=== PATIENT | female | born 1990 | race American Indian/Alaskan Native ===

== ENCOUNTER 2016-12-24 10:20 | Emergency (ER) | payer MEDICAID, OTHER ==
[2016-12-24 10:21] VITALS: BMI 29.9
[2016-12-24 11:07] VITALS: BP 109/74; PULSE 95; RESP 16; TEMP 98.6; O2SAT 100
--- NOTE | 2016-12-24 12:03 | ED PDOC ---
Arrival/HPI - General Chief Complaint: Female Genitourinary Time Seen by Provider: 12/24/16 11:19 - History of Present Illness Narrative History of Present Illness (Text): 12/24/16 12:00 26yo female, denies PMHx, presents with vaginal bleeding, described as clots for 2 days. 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 Denies abd or pelvic pain, denies n/v, denies RODRIGUEZ, denie f/c, denies vaginal discharge, denies other symptoms. States her LNMP was in the beginning of this month. Past Medical History - Provider Review Nursing Documentation Reviewed: Yes - Past Medical History Past Medical History: No Previous - Psychiatric Hx Psychophysiologic Disorder: No Hx Substance Use: No - Past Surgical History Past Surgical History: Non-Contributing - Surgical History Hx Orthopedic Surgery: Yes (L HIP) Other/Comment: dislocated left hip - Suicidal Assessment Feels Threatened In Home Enviroment: No Family/Social History Family/Social History: Unknown Family HX Smoking Status: Never Smoked Hx Alcohol Use: Yes Hx Substance Use: No Allergies/Home Meds Allergies/Adverse Reactions: Allergies No Known Allergies Allergy (Verified 12/24/16 11:01) Home Medications: Home Meds Medication Instructions Recorded Confirmed No Known Home Med 12/24/16 12/24/16 Physical Exam - Physical Exam Narrative Physical Exam (Text): 12/24/16 12:03 - Review of Systems Constitutional: Normal. absent: Fatigue, Weight Change, Fevers Eyes: Normal ENT: denies sore throat, denies tristhmus Respiratory: Normal. absent: SOB, Cough, Sputum Cardiovascular: absent: Chest Pain, Palpitations, Syncope Gastrointestinal: Normal. absent: Abdominal Pain, Diarrhea, Nausea, Vomiting Genitourinary: vaginal bleeding absent: Dysuria, Frequency, Hematuria Musculoskeletal: Normal. absent: Arthralgias, Back Pain, Neck Pain Skin: no rashes, no erythema Neurological: absent: Focal Weakness Endocrine: Normal Hemo/Lymphatic: Normal Psychiatric: No suicidal or homicidal ideations Physical exam Patient appears age appropriate in no distress, speaking full sentences without difficulty - Systems Exam Head: Present: Atraumatic, Normocephalic Pupils: Present: PERRL Extroacular Muscles: Present: EOMI Conjunctiva: Present: Normal Mouth: Present: Moist Mucous Membranes Neck: Present: Normal Range of Motion. No: MIDLINE TENDERNESS, Paraspinal Tenderness Respiratory/Chest: Present: Clear to Auscultation, Good Air Exchange. No: Respiratory Distress, Accessory Muscle Use, Tachypneic Cardiovascular: Present: Regular Rate and Rhythm, Normal S1, S2, Peripheal Pulses Present. No: Murmurs Abdomen: Present: Normal Bowel Sounds. No: Tenderness, Distention, Peritoneal Signs, Rebound, Guarding Back: Present: Normal Inspection. No: Midline Tenderness, Paraspinal Tenderness Upper Extremity: Present: Normal Inspection. No: Cyanosis, Edema Lower Extremity: Present: Normal Inspection. No: Edema Neurological: Present: GCS=15, Speech Normal, cranial nerves II through XII fully intact with no cerebellar abnormality, neurosensory fully intact. No focal neurological deficits. Skin: Present: Warm, Dry, Normal Color. No: Rashes Lymphatic: Present: OX3, NI, NC Psychiatric: Present: Alert, Oriented x 3, Normal Insight, Normal Concentration Vital Signs Reviewed: Yes Vital Signs Temp Pulse Resp BP Pulse Ox 12/24/16 11:01 98.6 F 95 H 16 109/74 100 Temperature: Afebrile Blood Pressure: Normal Pulse: Regular Respiratory Rate: Normal Appearance: Positive for: Well-Appearing Pain Distress: None Mental Status: Positive for: Alert and Oriented X 3 Medical Decision Making ED Course and Treatment: 12/24/16 12:04 26yo female with vaginal clots, getting plant custodian, x2 days. No other complaints and no acute findings on physical examination. pt's POC is negative. pt states she has breast reduction surgery on Wednesday. will draw Hb pt instructed to tell her surgeon about this visit and that she may need a repeat Hb before the procedure. Pt repeated plan and verbalized understanding. Pt states she has a f/u appt with her environmental laboratory technician early next month. 12/24/16 12:41 Hb 11.5 pt hemodynamically stable in no distress, denies complaints states she is taking iron and folic acid states she feels comfortable being dc'd home with outpatient f/u Pt states she understands to return to the ER right away for new or worsening symptoms or for inability to f/u with PMD or specialist as instructed. Patient states that she fully agrees with and understands discharge instructions. States that she agrees with the plan and disposition. Verbalized and repeated discharge instructions and plan. I have given the patient opportunity to ask any additional questions. - Lab Interpretations Lab Results: 12/24/16 11:53 12/24/16 11:53 Lab Results 12/24/16 12:55: C.trachomatis RNA (TMA) Not detected, N.gonorrhoeae RNA (TMA) Not detected 12/24/16 12:00: Urine Color Yellow, Urine Appearance Clear, Urine pH 8.5, Ur Specific [place] 1.020, Urine Protein 30 H, Urine Glucose (UA) Negative, Urine Ketones Negative, Urine Blood Large H, Urine Nitrate Negative, Urine Bilirubin Negative, Urine Urobilinogen 1.0 H, Ur Leukocyte Esterase Negative, Urine RBC 25 - 30, Urine WBC 1 - 3, Ur Epithelial Cells 4 - 5 12/24/16 11:53: Sodium 139, Potassium 4.7, Chloride 103, Carbon Dioxide 27, Anion Gap 14, BUN 10, Creatinine 0.8, Est GFR ( Amer) > 60, Est GFR (Non- Af Amer) > 60, Random Glucose 89, Calcium 9.4 12/24/16 11:53: WBC 6.6, RBC 4.06, Hgb 11.5 L, Hct 35.3 L, MCV 86.9, MCH 28.3, MCHC 32.6, RDW 13.7, Plt Count 251, MPV 8.8, Gran % 65.4, Lymph % (Auto) 26.1, [place] % (Auto) 5.9, Eos % (Auto) 2.0, Baso % (Auto) 0.6, Gran # 4.31, Lymph # 1.7 , [place] # 0.4, Eos # 0.1, Baso # 0.04 Disposition/Present on Arrival - Present on Arrival Any Indicators Present on Arrival: No History of DVT/PE: No History of Uncontrolled Diabetes: No Urinary Catheter: No History of Decub. Ulcer: No History Surgical Site Infection Following: None - Disposition Have Diagnosis and Disposition been Completed?: Yes Diagnosis: Vaginal bleeding Disposition: HOME/ ROUTINE Disposition Time: 12:42 Patient Plan: Discharge Condition: GOOD Discharge Instructions (ExitCare): Dysfunctional Uterine Bleeding (ED) Additional Instructions: PLEASE INFORM YOUR SURGEON ON WEDNESDAY ABOUT THIS VISIT AND THAT YOUR HEMOGLOBIN WAS 11.5 PLEASE RETURN TO THE EMERGENCY DEPARTMENT FOR NEW OR WORSENING SYMPTOMS. RETURN RIGHT AWAY IF YOU CANNOT FOLLOW UP WITH YOUR PRIMARY CARE DOCTOR, CLINIC, OR SPECIALIST IN 1-2 DAYS. Referrals: Joe Copeland MD [Primary Care Provider] - Follow up with primary Mauricio Veliz MD [Medical Doctor] - Follow up with primary Alysa Veliz MD [Medical Doctor] - Follow up with primary Forms: WORK NOTE
[2016-12-24 12:05] LABS: ADD MANUAL DIFF? NO
[2016-12-24 12:20] LABS: BLOOD UREA NITROGEN 10 mg/dL (7-21); CALCIUM 9.4 mg/dL (8.4-10.5); CARBON DIOXIDE 27 mmol/L (21-33); CHLORIDE 103 mmol/L (98-107); GFR AFRICAN-AMERICAN > 60; GLUCOSE,RANDOM 89 mg/dL (70-110); POTASSIUM 4.7 mmol/L (3.6-5.0); SODIUM 139 mmol/L (132-148)
[2016-12-24 12:36] LABS: BASO # 0.04 K/mm3 (0.0-2.0); BASO % 0.6 % (0.0-3.0); EOS # 0.1 (0.0-0.7); GRAN # 4.31 (1.4-6.5); GRAN % 65.4 % (50.0-68.0); HEMATOCRIT 35.3 % (36.0-48.0); LYMPH # 1.7 (1.2-3.4); LYMPH % 26.1 % (22.0-35.0); MEAN CELL VOLUME 86.9 fL (80.0-105.0); MEAN CORPUSCULAR HEMOGLOBIN 28.3 pg (25.0-35.0); MEAN CORPUSCULAR HGB CONC 32.6 g/dl (31.0-37.0); MEAN PLATELET VOLUME 8.8 fl (7.0-11.0); MONO # 0.4 (0.1-0.6); MONO % 5.9 % (1.0-6.0); PLATELET COUNT 251 10^3/uL (120.0-450.0); RED CELL DISTRIBUTION WIDTH 13.7 % (11.5-14.5); WHITE BLOOD COUNT 6.6 10^3/ul (4.5-11.0)
[2016-12-24 12:38] LABS: PH,URINE 8.5 (4.7-8.0); URINE APPEARANCE CLEAR (CLEAR); URINE BILIRUBIN NEGATIVE (NEGATIVE); URINE BLOOD LARGE (NEGATIVE); URINE COLOR YELLOW (YELLOW); URINE GLUCOSE (UA) NEGATIVE (NEGATIVE); URINE KETONE NEGATIVE (NEGATIVE); URINE LEUKOCYTE ESTERASE NEGATIVE Leu/uL (NEGATIVE); URINE PROTEIN 30 mg/dL (<30 mg/dL)
[2016-12-24 12:45] LABS: URINE RBC 25 - 30 /hpf (0-2)
== END 2016-12-24 13:02 | disposition home or self-care (01) ==
LOC: ED 10:20
DX: N93.8 Other specified abnormal uterine and vaginal bleeding (principal)